=== PATIENT | male | born 1955 | race Caucasian/White ===

== ENCOUNTER 2017-02-07 12:41 | Outpatient (CLI) | payer OTHER | END 2017-02-07 12:42 | disposition critical access hospital (66) | LOC: EMS 12:41 | PROVIDERS: ATTEND Surgery | DX: R55 Syncope and collapse (principal); S01.112A Laceration without foreign body of left eyelid and periocular area, initial encounter; R42 Dizziness and giddiness; W18.39XA Other fall on same level, initial encounter; Y92.248 Other public administrative building as the place of occurrence of the external cause | CPT/HCPCS: A0425; A0427 ==

== ENCOUNTER 2017-02-07 12:46 | Emergency (ER) | payer OTHER ==
--- NOTE | 2017-02-07 12:58 | ED Physician Documentation ---
PD HPI SYNCOPE - Stated complaint Stated Complaint: SYNCOPE - Chief complaint Chief Complaint: Neuro - History obtained from History obtained from: Patient, EMS - Additional information Additional information: He is a longstanding diabetic on insulin. Has a monitor. He was at [facility] today and standing, feeling lightheaded for several minutes then a brief syncopal episode with small lac to left lateral eyebrow and moderate headache now from hitting his head (was not there prior to syncope). There is no associated dyspnea, pedal edema, calf pain or chest pain. 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 Review of Systems Ten Systems: 10 systems reviewed and negative Constitutional: denies: Fever, Chills Nose: denies: Rhinorrhea / runny nose, Congestion Cardiac: denies: Chest pain / pressure, Palpitations Respiratory: denies: Dyspnea, Cough GI: denies: Abdominal Pain, Nausea PD PAST MEDICAL HISTORY - Present Medications Home Medications: Ambulatory Orders Medication Instructions Recorded Confirmed Atorvastatin [Lipitor] 40 mg PO DAILY 02/07/17 02/07/17 Doxazosin [Cardura] 8 mg PO DAILY 02/07/17 02/07/17 Furosemide 40 mg PO DAILY 02/07/17 02/07/17 Insulin Glargine [Lantus] 14 units SQ DAILY PM 02/07/17 02/07/17 Insulin Lispro [Humalog] 8 - 11 units SQ PRN PRN 02/07/17 02/07/17 Levothyroxine [Synthroid] 224 mg PO DAILY 02/07/17 02/07/17 Losartan [Cozaar] 100 mg PO DAILY 02/07/17 02/07/17 Potassium Chloride [K-Dur] 20 meq PO DAILY 02/07/17 02/07/17 Ubidecarenone [Co Q-10] 100 mg PO DAILY 02/07/17 02/07/17 amLODIPine [Norvasc] 5 mg PO BID 02/07/17 02/07/17 cloNIDine [Catapres] 0.2 mg PO BID 02/07/17 02/07/17 metFORMIN [Glucophage] 500 mg PO BID 02/07/17 02/07/17 - Allergies Allergies/Adverse Reactions: Allergies Allergy/AdvReac Type Severity Reaction Status Date / Time No Known Drug Allergies Allergy Verified 02/07/17 12:49 PD ED PE NORMAL - Vitals Vital signs reviewed: Yes - General General: Alert and oriented X 3, No acute distress - HEENT HEENT: PERRL, EOMI, Other (Tiny lac left lateral eyebrow, too small to suture, no underlying bony TTP.) - Neck Neck: Supple, no meningeal sign, No bony TTP - Cardiac Cardiac: RRR, No murmur - Respiratory Respiratory: No respiratory distress, Clear bilaterally - Abdomen Abdomen: Soft, Non tender - Male Male : Other (Brown guaiac neg stool, QC pass) - Back Back: No CVA TTP, No spinal TTP - Derm Derm: Normal color, Warm and dry - Extremities Extremities: No edema, No calf tenderness / cord - Neuro Neuro: Alert and oriented X 3, safety leader 2-12 intact, No motor deficit, No sensory deficit, Normal speech - Psych Psych: Normal mood, Normal affect Results - Vitals Vitals: Vital Signs - 24 hr 02/07/17 02/07/17 12:49 14:13 Temperature 36.8 C Heart Rate 61 52 L Respiratory 18 16 Rate Blood Pressure 128/54 L 118/61 O2 Saturation 98 96 Oxygen O2 Source Room air - EKG (time done) 1302 Rate: Rate (enter#) Rhythm: NSR (57) [place]: LAD Intervals: LBBB (incomplete) Ischemia: Normal ST segments. No: ST elevation c/w ischemia Computer interpretation: Agree with computer - Labs Labs: Laboratory Tests 02/07/17 02/07/17 12:56 12:56 WBC 7.3 RBC 4.01 L Hgb 11.3 L Hct 33.3 L MCV 83.0 MCH 28.2 MCHC 34.0 RDW 14.2 Plt Count 236 MPV 8.3 Neut # 5.3 Lymph # 1.4 L [place] # 0.5 Eos # 0.1 Baso # 0.0 Absolute Nucleated RBC 0.00 Nucleated RBCs 0.0 Sodium 141 Potassium 3.3 L Chloride 104 Carbon Dioxide 28 Anion Gap 9.0 BUN 21 H Creatinine 1.3 H Estimated GFR (MDRD) 57 L Glucose 220 H Calcium 7.8 L Total Bilirubin 0.6 AST 37 ALT 62 H Alkaline Phosphatase 91 Total Protein 6.5 L Albumin 3.7 Globulin 2.8 Albumin/Globulin Ratio 1.3 Lipase 31 - Rads (name of study) Ct Head Radiology: EMP read contemporaneously (NAD, some angiopathy) PD MEDICAL DECISION MAKING - ED course ED course: 61-year-old gentleman with a syncopal episode today, he had a couple of minutes of premonition which is reassuring. There is no significant EKG abnormality, no arrhythmias on the monitor, no symptoms here. Head CT was negative for trauma. He did have mild anemia but rectal exam was negative. Departure - Departure Disposition: 01 Home, Self Care Clinical Impression: Syncope Qualifiers: Syncope type: unspecified Qualified Code(s): R55 - Syncope and collapse Diabetes Qualifiers: Diabetes mellitus type: type 1 Diabetes mellitus complication status: without complication Qualified Code(s): E10.9 - Type 1 diabetes mellitus without complications Condition: Good Record reviewed to determine appropriate education?: Yes Instructions: ED Dizziness Syncope Fainting W Pre Comments: Compared to old labs you do have mild anemia and mild renal insufficiency, there is no evidence of active gastrointestinal bleeding or other emergency medical condition. Please follow up with your physician for further evaluation and treatment. Call your doctor to arrange a follow up appointment. Make the next available appointment. In the interim return anytime if worse or if new symptoms develop. Discharge Date/Time: 02/07/17 14:23
[2017-02-07 13:07] LABS: BASOPHILS % (AUTO) 0.6 %; EOSINOPHILS # (AUTO) 0.1 10^3/uL (0.0-0.7); EOSINOPHILS % (AUTO) 0.8 %; HCT - HEMATOCRIT 33.3 % (42.0-52.0); HGB - HEMOGLOBIN 11.3 g/dL (14.0-18.0); LYMPHOCYTES # (AUTO) 1.4 10^3/uL (1.5-3.5); LYMPHOCYTES % (AUTO) 19.2 %; MEAN CORPUSCULAR HEMOGLOBIN 28.2 pg (27.0-31.0); MEAN PLATELET VOLUME 8.3 fL (7.4-11.4); MONOCYTES # (AUTO) 0.5 10^3/uL (0.0-1.0); MONOCYTES % (AUTO) 7.3 %; NEUTROPHILS # (AUTO) 5.3 10^3/uL (1.5-6.6); NEUTROPHILS % (AUTO) 72.1 %; RED BLOOD COUNT 4.01 10^6/uL (4.70-6.10); RED CELL DISTRIBUTION WIDTH 14.2 % (12.0-15.0); UNCORRECTED WHITE BLOOD COUNT 7.3 x10^3/uL; WHITE BLOOD COUNT 7.3 x10^3/uL (4.8-10.8)
[2017-02-07 13:22] LABS: ALBUMIN/GLOBULIN RATIO 1.3 (1.0-2.2); BILIRUBIN,TOTAL 0.6 mg/dL (0.2-1.0); CALCIUM 7.8 mg/dL (8.5-10.3); CREATININE 1.3 mg/dL (0.6-1.2); POTASSIUM 3.3 mmol/L (3.5-5.0); TOTAL PROTEIN 6.5 g/dL (6.7-8.2)
--- NOTE | 2017-02-07 13:59 | CT Preliminary Report ---
Exam: CT Head W/O IMPRESSION: 1. No acute or focal intracranial abnormality. 2. Mild nonfocal white matter disease. Likely minimal to mild microangiopathy. [facility] SITE ID: [id number]
--- NOTE | 2017-02-07 14:02 | CT Report ---
EXAM: CT HEAD EXAM DATE: 02/07/2017 01:36 PM. CLINICAL HISTORY: Head inj. loss of consciousness. COMPARISON: None. TECHNIQUE: Multiaxial CT images were obtained from the foramen magnum to the vertex. IV contrast: Non e. Reformats: Coronal. In accordance with CT protocol optimization, one or more of the following dose reduction techniques w ere utilized for this exam: automated exposure control, adjustment of mA and/or KV based on patient s ize, or use of iterative reconstructive technique. FINDINGS: Parenchyma: There is mild bilateral basal ganglia hypodensity. Negative for intracranial acute hemorr odin. No midline shift or mass effect. Extraaxial Spaces: No abnormal subdural or epidural fluid collection. Ventricles: Normal in size and position. Sinuses: Imaged paranasal sinuses, orbits, and mastoids show no significant abnormality. Bones: No evidence of fracture or calvarial defect. Other: None. IMPRESSION: 1. No acute or focal intracranial abnormality. 2. Mild nonfocal white matter disease. Likely minimal to mild microangiopathy. [facility] Referring Provider Line: [phone] SITE ID: [id number]
[2017-02-07 14:14] VITALS: BP 118/61
== END 2017-02-07 14:23 | disposition home or self-care (01) ==
LOC: EDUNIT# → EDBD → ED 12:46
DX: R55 Syncope and collapse (principal); E10.9 Type 1 diabetes mellitus without complications; Z79.4 Long term (current) use of insulin; Z79.84 Long term (current) use of oral hypoglycemic drugs; I44.7 Left bundle-branch block, unspecified; N28.9 Disorder of kidney and ureter, unspecified; D64.9 Anemia, unspecified
CPT/HCPCS: 70450; 80053; 83690; 85025; 93005; 93010; 99284; 99285